=== PATIENT | female | born 1975 | race Caucasian/White ===

== ENCOUNTER → 2023-12-27 12:19 | Outpatient (REF) | payer BC, SELFPAY | LOC: HWRAD 12:19 | PROVIDERS: ATTENDING PHYSICIAN Internal Medicine Rheumatology; FAMILY PHYSICIAN Family Medicine | DX: L40.9 Psoriasis, unspecified (principal); M35.9 Systemic involvement of connective tissue, unspecified; M46.1 Sacroiliitis, not elsewhere classified | CPT/HCPCS: 72114; 72202 ==

== ENCOUNTER → 2024-06-13 15:26 | Outpatient (REF) | payer BC, SELFPAY | LOC: RAD 15:26 | PROVIDERS: ATTENDING PHYSICIAN Obstetrics & Gynecology Gynecology; FAMILY PHYSICIAN Family Medicine | DX: N95.0 Postmenopausal bleeding (principal) | CPT/HCPCS: 76830; 76856 ==

== ENCOUNTER → 2024-07-10 15:47 | Outpatient (REF) | payer BC, SELFPAY | LOC: HWWDC 15:47 | PROVIDERS: ATTENDING PHYSICIAN Obstetrics & Gynecology Gynecology; FAMILY PHYSICIAN Family Medicine | DX: Z12.31 Encounter for screening mammogram for malignant neoplasm of breast (principal) | CPT/HCPCS: 77063; 77067 ==